=== PATIENT | male | born 1930 | race Caucasian/White ===

== ENCOUNTER 2021-03-29 15:56 | Inpatient (IN) | payer MEDICARE, OTHER ==
[~2021-03-29 15:56] MED LIST: Iopamidol-370 76% 500 ML 1 ML ONE
[2021-03-29 16:35] LABS: #Eosinphils 0.2 thou/uL (0.0-0.7); #Lymphocytes 0.9 thou/uL (1.20-3.40); #Monocytes 0.8 thou/uL (0.11-0.59); #Neutrophils 4.9 thou/uL (1.40-6.50); %Basophils 0.1 % (0.0-1.0); %Eosinophils 3.5 % (0.0-10.0); %Lymphocytes 13.1 % (21.0-51.0); %Monocytes 11.8 % (0.0-10.0); %Neutrophils 71.5 % (42.0-75.0); Hemoglobin 12.3 g/dL (14.0-18.0); Mean Corpuscular HGB CONC 33.2 g/dL (32.0-36.0); Mean Corpuscular Hemoglobin 31.8 pg (27.0-31.0); Mean Corpuscular Volume 95.6 fL (78.0-98.0); Mean Platelet Volume 10.1 fL (7.4-10.4); Platelet Count 199 thou/uL (130-400); RBC Distribution Width 14.8 % (11.5-14.5); Red Blood Cell (RBC) Count 3.88 mill/uL (4.70-6.10); White Blood Cell (WBC) Count 6.8 thou/uL (4.8-10.8)
[2021-03-29 16:58] LABS: Acetaminophen Less than 6.0 mcg/mL (10.0-30.0); Alcohol Less than 10 mg/dL (Less than 10); Salicylate Less than 8.0 mg/dL (15.0-30.0)
[2021-03-29 17:01] LABS: ALT (SGPT) 63 U/L (8-55); AST (SGOT) 95 U/L (5-34); Albumin 2.8 g/dL (3.4-4.8); Alkaline Phosphatase 794 U/L (40-110); Anion Gap 11 mmol/L (10-20); BUN (Urea Nitrogen) 17 mg/dL (8.4-25.7); Bilirubin, Total 9.8 mg/dL (0.2-1.2); Calc. Creatinine Clearance 0 mL/min (70-130); Calcium 8.8 mg/dL (7.8-10.44); Carbon Dioxide 24 mmol/L (23-31); Chloride 106 mmol/L (98-107); Globulin 2.8 g/dL (2.4-3.5); Glucose 113 mg/dL (83-110); Lipase 6 U/L (8-78); Magnesium 1.7 mg/dL (1.6-2.6); Potassium 3.9 mmol/L (3.5-5.1); Protein, Total 5.6 g/dL (5.8-8.1); Sodium 137 mmol/L (136-145)
[2021-03-29 18:14] LABS: Bacteria/HPF None Seen HPF (None Seen); Bilirubin 2+ (Negative); Blood, Urine 1+ (Negative); Clarity Clear (Clear); Glucose, Urine (Dipstick) Normal (Negative); Ketone, Urine Negative (Negative); Leukocyte Negative Leu/uL (Negative); Nitrite Negative (Negative); Protein, Urine (Dipstick) 100 mg/dL (Neg-Trace); RBC/HPF 0-3 HPF (0-3); Specific Gravity, Urine 1.024 (1.002-1.036); Squamous Epithelial 0-3 HPF (0-3); Urobilinogen Normal mg/dL (Less than 2); WBC/HPF 0-3 HPF (0-3); pH, Urine 5.5 (5.0-9.0)
[2021-03-29 18:31] LABS: ALT (SGPT) 62 U/L (8-55); AST (SGOT) 95 U/L (5-34); Albumin 2.8 g/dL (3.4-4.8); Alkaline Phosphatase 783 U/L (40-110); Bilirubin, Direct 7.7 mg/dL (0.1-0.3); Bilirubin, Total 9.7 mg/dL (0.2-1.2)
[2021-03-29 18:39] LABS: Calcium Oxalate Crystals Rare HPF (None Seen)
[2021-03-29] MEDS ORDERED: Piperacillin/Tazobactam 4.5 GM VIAL ONE (18:56)
[2021-03-29] MEDS ORDERED: Ondansetron PF 4 MG/2 ML Vial IVP PRN (23:09)
[2021-03-29] MEDS ORDERED: Ondansetron ODT 4 MG TAB PO PRN (23:10)
[2021-03-30 00:24] VITALS: BMI 25.7
[2021-03-30] MEDS ORDERED: Acetaminophen 325 MG TAB PO PRN (01:47)
[2021-03-30] MEDS ORDERED: Ketorolac Tromethamine 30 MG/ML VIAL IVP PRN (01:53)
[2021-03-30] MEDS ORDERED: Sodium Chloride 0.9% 1,000 ML IV SCH (02:00)
[2021-03-30] MEDS: Piperacillin/Tazobactam 3.375 GM in Sodium Chloride 0.9% 100 ML IVPB SCH ×3 (02:56→17:56)
[2021-03-30 05:48] LABS: #Eosinphils 0.3 thou/uL (0.0-0.7); #Lymphocytes 0.7 thou/uL (1.20-3.40); #Monocytes 0.7 thou/uL (0.11-0.59); %Basophils 0.3 % (0.0-1.0); %Lymphocytes 10.7 % (21.0-51.0); %Monocytes 10.9 % (0.0-10.0); %Neutrophils 74.1 % (42.0-75.0); Hemoglobin 11.3 g/dL (14.0-18.0); Mean Corpuscular HGB CONC 32.9 g/dL (32.0-36.0); Mean Corpuscular Hemoglobin 31.3 pg (27.0-31.0); Mean Platelet Volume 10.1 fL (7.4-10.4); Platelet Count 187 thou/uL (130-400); RBC Distribution Width 14.7 % (11.5-14.5); Red Blood Cell (RBC) Count 3.61 mill/uL (4.70-6.10); White Blood Cell (WBC) Count 6.7 thou/uL (4.8-10.8)
[2021-03-30 06:03] LABS: Anion Gap 12 mmol/L (10-20); BUN (Urea Nitrogen) 16 mg/dL (8.4-25.7); Calc. Creatinine Clearance 58 mL/min (70-130); Calcium 8.4 mg/dL (7.8-10.44); Carbon Dioxide 22 mmol/L (23-31); Chloride 106 mmol/L (98-107); Glucose 107 mg/dL (83-110); Potassium 3.7 mmol/L (3.5-5.1); Sodium 136 mmol/L (136-145)
[2021-03-30] MEDS ORDERED: Senokot S 8.6-50 MG TAB PO PRN (07:05)
[2021-03-30] MEDS ORDERED: Sodium Chloride 0.65% Nasal 44 ML BOT EA NARE PRN (07:05)
[2021-03-30] MEDS ORDERED: Bisacodyl 5 MG TAB PO PRN (07:05)
[2021-03-30] MEDS ORDERED: Ondansetron PF 4 MG/2 ML Vial IVP PRN (07:05)
[2021-03-30] MEDS ORDERED: Artificial Tear Sol 15 ML BOT EA EYE PRN (07:05)
[2021-03-30] MEDS ORDERED: GUAIFENESIN SF SOLN 200 MG/10 ML UDCUP PO PRN (07:05)
[2021-03-30] MEDS ORDERED: Hydrocerin (Eucerin) Cream 120 gm Jar TOP PRN (07:05)
[2021-03-30] MEDS ORDERED: HYDROcodone/Acetaminophen 5/325 mg Tablet PO PRN (07:05)
[2021-03-30] MEDS ORDERED: Loperamide HCl 2 MG CAP PO PRN (07:05)
[2021-03-30] MEDS ORDERED: Calcium Carbonate 500 MG ChewTAB PO PRN (07:05)
[2021-03-30] MEDS ORDERED: Loratadine 10 MG TAB PO PRN (07:05)
[2021-03-30] MEDS ORDERED: hydrALAZINE 20 MG/ML VIAL SLOW IVP PRN (07:05)
[2021-03-30] MEDS ORDERED: Cepastat Lozenges 1 LOZ PO PRN (07:05)
[2021-03-30] MEDS ORDERED: Ondansetron ODT 4 MG TAB PO PRN (07:05)
[2021-03-30] MEDS: D5 0.9% NS w/ 20 mEq KCl 1,000 ML IV SCH ×2 (09:31→21:33)
[2021-03-30] MEDS: Saccharomyces boulardii 250 MG CAP PO SCH (09:33)
[2021-03-30 16:42] LABS: SARS-CoV-2 PCR by NAA Not Detected (NotDetected)
[2021-03-31] MEDS: Piperacillin/Tazobactam 3.375 GM in Sodium Chloride 0.9% 100 ML IVPB SCH ×3 (02:40→17:55)
[2021-03-31 05:12] LABS: #Eosinphils 0.3 thou/uL (0.0-0.7); #Lymphocytes 0.7 thou/uL (1.20-3.40); #Monocytes 0.7 thou/uL (0.11-0.59); #Neutrophils 4.6 thou/uL (1.40-6.50); %Basophils 0.5 % (0.0-1.0); %Eosinophils 4.8 % (0.0-10.0); %Lymphocytes 11.5 % (21.0-51.0); %Neutrophils 72.2 % (42.0-75.0); Hemoglobin 10.9 g/dL (14.0-18.0); Mean Corpuscular HGB CONC 33.3 g/dL (32.0-36.0); Mean Corpuscular Hemoglobin 31.7 pg (27.0-31.0); Mean Corpuscular Volume 95.1 fL (78.0-98.0); Mean Platelet Volume 10.1 fL (7.4-10.4); Platelet Count 175 thou/uL (130-400); Red Blood Cell (RBC) Count 3.45 mill/uL (4.70-6.10); White Blood Cell (WBC) Count 6.3 thou/uL (4.8-10.8)
[2021-03-31 05:26] LABS: Phosphorus 2.1 mg/dL (2.3-4.7)
[2021-03-31 05:30] LABS: ALT (SGPT) 53 U/L (8-55); AST (SGOT) 87 U/L (5-34); Albumin 2.5 g/dL (3.4-4.8); Alkaline Phosphatase 662 U/L (40-110); Anion Gap 12 mmol/L (10-20); BUN (Urea Nitrogen) 15 mg/dL (8.4-25.7); Bilirubin, Total 10.7 mg/dL (0.2-1.2); Calc. Creatinine Clearance 44 mL/min (70-130); Calcium 8.3 mg/dL (7.8-10.44); Carbon Dioxide 21 mmol/L (23-31); Chloride 106 mmol/L (98-107); Globulin 2.8 g/dL (2.4-3.5); Glucose 116 mg/dL (83-110); Lipase 5 U/L (8-78); Magnesium 1.5 mg/dL (1.6-2.6); Potassium 3.9 mmol/L (3.5-5.1); Protein, Total 5.3 g/dL (5.8-8.1); Sodium 135 mmol/L (136-145)
[2021-03-31] MEDS ORDERED: Magnesium Sulfate 3 GM in Sodium Chloride 0.9% 100 ML IVPB SCH (06:30)
[2021-03-31] MEDS ORDERED: PHOS-NAK 1 PKT PACK PO SCH (06:30)
[2021-03-31] MEDS ORDERED: Iothalamate Meglumine 60% 50 ML VIAL FS ONE (07:37)
[2021-03-31] MEDS ORDERED: Indomethacin 50 MG SUPP ONE ×2 (07:40→09:46)
[2021-03-31] MEDS ORDERED: Fentanyl 100 MCG/2 ML VIAL ONE (09:21)
[2021-03-31] MEDS ORDERED: Dexamethasone 20 MG/5 ML VIAL ONE (09:38)
[2021-03-31] MEDS ORDERED: Succinylcholine 200 MG/10 ml SYRINGE FS ONE (09:38)
[2021-03-31] MEDS ORDERED: Lidocaine 1% PF 5 ML VIAL ONE (09:38)
[2021-03-31] MEDS ORDERED: Ondansetron PF 4 MG/2 ML Vial ONE (09:38)
[2021-03-31] MEDS ORDERED: PHENYLEPHRINE-NS 100 MCG/ML 10 ML SYRINGE ONE (09:38)
[2021-03-31] MEDS ORDERED: PROPOFOL 200 MG/20 ML VIAL ONE (09:38)
[2021-03-31] MEDS ORDERED: Piperacillin/Tazobactam 3.375 GM VIAL ONE (09:52)
[2021-03-31] MEDS ORDERED: Sodium Chloride 0.9% 100 ML ONE (09:53)
[2021-03-31] MEDS: Saccharomyces boulardii 250 MG CAP PO SCH (14:57)
[2021-03-31] MEDS: D5 0.9% NS w/ 20 mEq KCl 1,000 ML IV SCH ×2 (14:58→23:30)
[2021-04-01] MEDS: Piperacillin/Tazobactam 3.375 GM in Sodium Chloride 0.9% 100 ML IVPB SCH ×3 (01:37→17:43)
[2021-04-01] MEDS: Melatonin 3 MG TAB PO PRN ×2 (01:45→21:05)
[2021-04-01 07:23] LABS: #Lymphocytes 0.7 thou/uL (1.20-3.40); #Monocytes 0.9 thou/uL (0.11-0.59); #Neutrophils 8.6 thou/uL (1.40-6.50); %Basophils 0.5 % (0.0-1.0); %Eosinophils 0.1 % (0.0-10.0); %Lymphocytes 6.7 % (21.0-51.0); %Monocytes 8.9 % (0.0-10.0); %Neutrophils 83.8 % (42.0-75.0); Hemoglobin 11.2 g/dL (14.0-18.0); Mean Corpuscular HGB CONC 33.4 g/dL (32.0-36.0); Mean Corpuscular Hemoglobin 31.6 pg (27.0-31.0); Mean Corpuscular Volume 94.5 fL (78.0-98.0); Mean Platelet Volume 10.4 fL (7.4-10.4); Platelet Count 189 thou/uL (130-400); RBC Distribution Width 15.3 % (11.5-14.5); Red Blood Cell (RBC) Count 3.56 mill/uL (4.70-6.10); White Blood Cell (WBC) Count 10.3 thou/uL (4.8-10.8)
[2021-04-01 07:42] LABS: Globulin 2.7 g/dL (2.4-3.5)
[2021-04-01 08:04] LABS: ALT (SGPT) 56 U/L (8-55); AST (SGOT) 98 U/L (5-34); Albumin 2.5 g/dL (3.4-4.8); Alkaline Phosphatase 633 U/L (40-110); Anion Gap 13 mmol/L (10-20); BUN (Urea Nitrogen) 19 mg/dL (8.4-25.7); Bilirubin, Total 10.7 mg/dL (0.2-1.2); Calc. Creatinine Clearance 42 mL/min (70-130); Calcium 8.2 mg/dL (7.8-10.44); Carbon Dioxide 22 mmol/L (23-31); Chloride 105 mmol/L (98-107); Glucose 143 mg/dL (83-110); Magnesium 1.9 mg/dL (1.6-2.6); Phosphorus 2.2 mg/dL (2.3-4.7); Protein, Total 5.4 g/dL (5.8-8.1); Sodium 136 mmol/L (136-145)
[2021-04-01] MEDS: Saccharomyces boulardii 250 MG CAP PO SCH (08:04)
[2021-04-01] MEDS ORDERED: diphenhydrAMINE 25 MG CAP PO SCH (22:45)
[2021-04-02] MEDS: Piperacillin/Tazobactam 3.375 GM in Sodium Chloride 0.9% 100 ML IVPB SCH ×2 (02:19→09:48)
[2021-04-02 07:09] LABS: ALT (SGPT) 68 U/L (8-55); AST (SGOT) 126 U/L (5-34); Albumin 2.6 g/dL (3.4-4.8); Alkaline Phosphatase 666 U/L (40-110); Anion Gap 12 mmol/L (10-20); BUN (Urea Nitrogen) 19 mg/dL (8.4-25.7); Calc. Creatinine Clearance 45 mL/min (70-130); Calcium 8.3 mg/dL (7.8-10.44); Carbon Dioxide 23 mmol/L (23-31); Chloride 106 mmol/L (98-107); Globulin 2.9 g/dL (2.4-3.5); Glucose 102 mg/dL (83-110); Magnesium 1.7 mg/dL (1.6-2.6); Potassium 4.1 mmol/L (3.5-5.1); Protein, Total 5.5 g/dL (5.8-8.1); Sodium 137 mmol/L (136-145)
[2021-04-02 07:15] LABS: #Basophils 0.1 thou/uL (0.0-0.2); #Eosinphils 0.1 thou/uL (0.0-0.7); #Lymphocytes 0.7 thou/uL (1.20-3.40); #Monocytes 0.9 thou/uL (0.11-0.59); #Neutrophils 7.5 thou/uL (1.40-6.50); %Basophils 0.9 % (0.0-1.0); %Eosinophils 1.3 % (0.0-10.0); %Lymphocytes 7.6 % (21.0-51.0); %Monocytes 10.1 % (0.0-10.0); %Neutrophils 80.1 % (42.0-75.0); Hemoglobin 11.4 g/dL (14.0-18.0); Mean Corpuscular HGB CONC 32.5 g/dL (32.0-36.0); Mean Corpuscular Volume 95.5 fL (78.0-98.0); Mean Platelet Volume 10.2 fL (7.4-10.4); Platelet Count 186 thou/uL (130-400); RBC Distribution Width 15.6 % (11.5-14.5); Red Blood Cell (RBC) Count 3.68 mill/uL (4.70-6.10); White Blood Cell (WBC) Count 9.3 thou/uL (4.8-10.8)
[2021-04-02 07:25] LABS: Phosphorus 1.8 mg/dL (2.3-4.7)
[2021-04-02] MEDS ORDERED: PHOS-NAK 1 PKT PACK PO SCH (08:30)
[2021-04-02] MEDS ORDERED: Triamcinolone 0.1% Cream 15 GM TUBE TOP SCH (09:00)
[2021-04-02] MEDS: Saccharomyces boulardii 250 MG CAP PO SCH (09:48)
[2021-04-02 12:28] VITALS: BP 148/78; TEMP 97.4
== END 2021-04-02 16:35 | disposition home or self-care (01) | DRG 445 ==
LOC: ERS 15:56 → T4-A 20:17
PROVIDERS: ADMIT Internal Medicine; ATTEND Internal Medicine
PROC: 0F798DZ Dilation of Common Bile Duct with Intraluminal Device, Via Natural or Artificial Opening Endoscopic (ICD-10-PCS; principal; 2021-03-31)
PROC: BF141ZZ Fluoroscopy of Gallbladder, Bile Ducts and Pancreatic Ducts using Low Osmolar Contrast (ICD-10-PCS; 2021-03-31)
PROC: 0FD98ZX Extraction of Common Bile Duct, Via Natural or Artificial Opening Endoscopic, Diagnostic (ICD-10-PCS; 2021-03-31)
DX: K83.1 Obstruction of bile duct (principal); Z66 Do not resuscitate; Z20.822 Contact with and (suspected) exposure to COVID-19; C25.0 Malignant neoplasm of head of pancreas; C78.7 Secondary malignant neoplasm of liver and intrahepatic bile duct; K57.32 Diverticulitis of large intestine without perforation or abscess without bleeding; K63.89 Other specified diseases of intestine; N28.89 Other specified disorders of kidney and ureter; I10 Essential (primary) hypertension; K21.9 Gastro-esophageal reflux disease without esophagitis; E78.5 Hyperlipidemia, unspecified; E78.00 Pure hypercholesterolemia, unspecified; G62.9 Polyneuropathy, unspecified; Z96.642 Presence of left artificial hip joint; Z96.0 Presence of urogenital implants; R74.01 Elevation of levels of liver transaminase levels; Z96.652 Presence of left artificial knee joint; L27.0 Generalized skin eruption due to drugs and medicaments taken internally; T50.905A Adverse effect of unspecified drugs, medicaments and biological substances, initial encounter; Z88.2 Allergy status to sulfonamides; Z79.899 Other long term (current) drug therapy
CPT/HCPCS: 36415; 74177; 74330; 76705; 80048; 80053; 80307; 81003; 81015; 82140; 82378; 83690; 83735; 83880; 84100; 84484; 85025; 86301; 86850; 86900; 86901; 87040; 88104; 93005; 94660; 96365; C1769; J1100; J1885; J2405; J2543; J2704; J3010; J3475; J3480; J3490; J7050; Q9961-U8; Q9967; U0003; U0005